=== PATIENT | female | born 1990 ===

== ENCOUNTER 2017-01-02 19:04 | Emergency (ER) | payer OTHER ==
[~2017-01-02] VITALS: Ht 167.6 cm; Wt 115.9 kg
[2017-01-02 19:16] VITALS: BP 133/100; PULSE 66; RESP 16; O2SAT 100
--- NOTE | 2017-01-02 19:32 | ED.REPORT ---
HPI-Back Pain Under 40 Date of Service January 02, 2017 ED Provider: Jason Segura DO Patient is a 26 year old female who presents to the ED complaining of lower back pain onset a month ago. Associated symptoms include pain that radiates down her left hip and leg. She denies fever, incontinence, recent injury or IV drug use. The patient reports that the pain has gotten progressively worse this past week. Patient also denies . Nursing Notes Stated Complaint: LOWER BACK PAIN Chief Complaint: Back Pain or Injury Nursing Notes Reviewed: Yes Allergies: Coded Allergies: cephalexin (Verified Allergy, Mild, Rash,Itching,, 01/02/17) General Time Seen by MD: 19:32 Chief Complaint Back pain Hx Obtained From: Patient Arrived By: Walk-in Sudden in Onset?: Yes Onset Occurred: More than a week ago... (1 month) Symptom Duration: Since onset Radiation: : Left leg above knee Recent Healthcare: No recent doctor visit, No recent hospitalization Similar Sx Previous: No Past Medical History Past Medical History none reported Past Surgical History none reported Smoking History Unknown if Ever Smoker Social History Drug Use: Denies drug use Other Social History: Good social support Ambulatory Status Independent Review of Systems Constitutional: Denies: Fever Respiratory: Denies: Non-productive cough, Shortness of breath Female: Denies: Incontinence Musculoskeletal: Reports: Back pain, Extremity pain (left hip and leg) Neurologic: Denies: Bladder dysfunction, Bowel dysfunction Complete sys rev & neg: except as marked. Physical Exam Initial Vital Signs Vital Signs (First) Date Time Temp Pulse Resp B/P Pulse Ox O2 Delivery O2 Flow Rate FiO2 01/02/17 19:16 36.7 66 16 133/100 100 Room Air Initial VS: Reviewed General/Constitutional: Awake, Alert, No acute distress Back: Atraumatic, Inspection NL, Full range of motion Neurologic: Oriented X3, Speech NL, No motor deficits, No sensory deficits, Cerebellar NL, Gait NL Neck: Atraumatic, Supple, Full range of motion Respiratory / Chest: Atraumatic, Breath sounds NL, Breath sounds = bilat, No respiratory distress Cardiovascular: Heart rate NL, Regular rhythm, Heart sounds NL Lower Extremity / Pelvis / MS: Atraumatic, Full range of motion, Neurologic intact, Vascular intact Head / Eyes: Atraumatic, Normocephalic, PERRL, EOMI Upper Extremity / MS: Atraumatic, Full range of motion Psychiatric: Affect NL, Mood NL Re-Eval/Medical Decision Med Decision/Clinical Course No signs of chord syndrom, mylopathy, fracture or epidural abscess. Low risk patient, no need for imaging. Patient assures that she is not and denies urine testing. Re-Evaluation/Progress : Time of Eval: 20:01 Re-Evaluation/Progress Note: Discussed plan for discharge during initial interview. The patient understands and agrees to the plan. All questions were addressed. Counseled Regarding: Diagnosis, Lab results, Need for follow-up, When/why to return to ED Discharge & Departure Impression: Primary Impression: Low back pain Chronicity: unspecified Back pain laterality: unspecified Sciatica presence : with sciatica Sciatica laterality: sciatica of left side Qualified Code: M54.42 - Lumbago with sciatica, left side Additional Impressions: Sciatic leg pain Radiculopathy Spinal region: lumbar Qualified Code: M54.16 - Radiculopathy, lumbar region Disposition: Home All VS Reviewed: Yes Condition: Stable Patient Instructions: Sciatica (ED), Acute Low Back Pain (ED) Additional Instructions: You probably have a pinched nerve that is causing the pain. There is also a work attached. Take Naproxen as needed for moderate pain. You can take Narco every 6 hours for severe pain. Follow up with the referral primary care physician next week. Return to the emergency department if you develop any new or worsening symptoms including fever or weakness. Referrals: [facility] Portions of this note were transcribed by Yumiko Stuart. I, Dr. Segura personally performed the history, physical exam and medical decision-making; I reviewed and confirmed the accuracy of the information in the transcribed note. Signed by: Chela Aggarwal, 01/02/17 and 2019 copies to: [facility] Jason Segura DO January 02, 2017 19:32 Verito Stuart January 02, 2017 20:12
[2017-01-02] MEDS ORDERED: HYDROcodone-APAP 5-325 mg Tablet PO ONE (20:10)
[2017-01-02 20:28] VITALS: BP 119/80; PULSE 82; RESP 16; O2SAT 98
== END 2017-01-02 20:45 | disposition home or self-care (01) ==
LOC: SED 19:04
DX: M54.42 Lumbago with sciatica, left side (principal); M54.16 Radiculopathy, lumbar region; Z88.1 Allergy status to other antibiotic agents
CPT/HCPCS: 96372; 99283; J1885